=== PATIENT | male | born 1985 | race Two or more races ===

== ENCOUNTER 2021-01-03 03:09 | Emergency (ER) | payer SELFPAY ==
[~2021-01-03] VITALS: Ht 170.2 cm; Wt 205.0 kg
[2021-01-03] MEDS ORDERED: ZIPRASIDONE 20 MG INJ IM ONE ×2 (03:25→03:30)
[2021-01-03] MEDS ORDERED: LORazepam 1MG TABLET ONE (03:26)
[2021-01-03] MEDS ORDERED: LORazepam 1MG TABLET PO ONE (03:30)
[2021-01-03 03:36] LABS: BASOPHILS % (AUTO) 1 % (0-1); EOSINOPHILS % (AUTO) 1 % (1-7); LYMPHOCYTES % (AUTO) 25 % (22-44); MEAN CORPUSCULAR HGB CONC 34.4 g/dL (33.2-36.2); MONOCYTES % (AUTO) 8 % (2-9); NEUTROPHILS % (AUTO) 66 % (42-75); PLATELET COUNT 288 x10^3/uL (130-400); RED BLOOD COUNT 5.59 x10^6/uL (4.38-5.82); RED CELL DISTRIBUTION WIDTH 13.4 % (9.4-14.8)
[2021-01-03 03:40] LABS: MD NO
[2021-01-03 03:43] LABS: ALANINE AMINOTRANSFERASE 84 U/L (12-78); ANION GAP 8 mmol/L (5-15); CALCIUM 10.8 mg/dL (8.5-10.1); CHLORIDE 108 mmol/L (98-107); CREATININE 1.06 mg/dL (0.7-1.3)
[2021-01-03 03:45] LABS: ALKALINE PHOSPHATASE 99 U/L (45-117); BILIRUBIN,TOTAL 0.5 mg/dL (0.2-1.0); TOTAL PROTEIN 8.6 g/dL (6.4-8.2)
[2021-01-03 03:46] LABS: SALICYLATE LEVEL < 1.7 mg/dL (2.8-20.0)
--- NOTE | 2021-01-03 04:09 | NUR ---
PT RESTING IN BED. PT MEDICATED PER JAN PT ON MONITOR WITH VSS.
--- NOTE | 2021-01-03 05:43 | NUR ---
PT UNABLE TO STAY AWAKE FOR TELEPSYCH. PYCHOLOGIST HOLLY WE CALL BACK WHEN PT IS MORE ALERT.
--- NOTE | 2021-01-03 12:30 | NUR ---
PT REC'VD DISCHARGE EDUCATION AND INSTRUCTIONS. PT HAD NO QUESTIONS. PT WAITING FOR RIDE TO ARRIVE AT 1300.
[2021-01-03 12:45] VITALS: BP 147/84
--- NOTE | 2021-01-03 13:48 | NUR ---
BREAK RN: PTS RIDE HAS NOT YET ARRIVED. PHONE NUMBER IS IN PTS CONTACT LIST ON HIS PHONE AND PHONE BATTERY IS . PHONE PLUGGED IN AT MONITOR DESK FOR CHARGING
== END 2021-01-03 14:46 | disposition home or self-care (01) ==
LOC: ED 14:40
DX: F41.1 Generalized anxiety disorder (principal); R00.0 Tachycardia, unspecified; F17.290 Nicotine dependence, other tobacco product, uncomplicated
CPT/HCPCS: 36415; 80053; 80299; 80320; 80329; 85025; 96372; 99285; 99406; J3486; G0480